=== PATIENT | male | born 1945 | race Caucasian/White ===

== ENCOUNTER 2020-05-26 21:02 | Outpatient (RCR) | payer MEDICARE, SELFPAY ==
[2020-05-26] MEDS: COVID-19 VACC, MRNA(PFIZER)/PF 30 MCG/0.3 ML SYRINGE IM (09:43)
[2020-06-16] MEDS: COVID-19 VACC, MRNA(PFIZER)/PF 30 MCG/0.3 ML SYRINGE IM (09:17)
== END 2020-08-23 23:59 ==
LOC: IMMUN 21:02
PROVIDERS: PCP Internal Medicine; Visit Provider Family Medicine
DX: Z23 Encounter for immunization (principal)
CPT/HCPCS: 0001A; 0002A; 91300

== ENCOUNTER 2021-07-05 10:26 | Emergency (ER) | payer MEDICARE, SELFPAY ==
[2021-07-05 10:28] VITALS: BP 158/96; PULSE 81; RESP 17; TEMP 36.2; O2SAT 98; BMI 21.1
--- NOTE | 2021-07-05 10:51 | EDS_ITS ---
HPI History of Present Illness HPI Narrative: Patient presents with dog bite to his right hand that occurred today. Patient states it was a neighborhood dog. Patient does not know the applications programmer. Patient states the dog was otherwise acting normally. Patient states he reached out to pet the dog and it bit him on his hand. Patient describes his pain as dull. Patient states it is worse with certain movements. Patient denies any paresthesias or weakness. Patient states his last tetanus was between 5 and 10 years ago. Patient denies any other injuries. Chief Complaint: Bite Informant: patient Occured/Mechanism Comment: Dog bite Onset/Context/Timing Onset: Today Context: Sudden Onset Timing: Continuous Quality of Pain: Dull Location: Right hand Worsened by: Movement Relieved by: Nothing Associated Symptoms Associated Symptoms: Negative for Parasthesia, Weakness and Loss of Funtion Narrative Tetanus Immunization: 5-10 years [facility] Medical History Depression Home Medications amoxicillin-pot clavulanate 1 tab PO Q12H #20 tablet 07/05/21 [Rx Last Taken Unknown] venlafaxine 37.5 mg PO DAILY 07/05/21 [History Last Taken Unknown] Allergy/AdvReac Type Severity Reaction Status Date / Time No Known Allergies Allergy Verified 07/05/21 10:27 Surgical History History of tonsillectomy Social History Smoking Status: Current every day smoker tobacco type: cigarettes ROS ROS ED Constitutional Constitutional ED: Denies chills or fever(s) Eyes Eyes: Denies blurry vision or change in vision ENT ENT ED: Reports rhinorrhea; Denies sore throat Cardiovascular Cardiovascular: Denies chest pain or palpitations Respiratory/Chest Respiratory/Chest: Denies cough or dyspnea Gastrointestinal Gastrointestinal: Denies nausea or vomiting Genitourinary Genitourinary ED: Denies dysuria or hematuria Musculoskeletal Musculoskeletal: Denies back pain or neck pain Integumentary Denies abscess or rash Neurologic Neurologic: Denies headache(s) or weakness Allergic/Immunologic Allergic/Immunologic ED: Denies mouth swelling or urticaria EXAM Physical Exam Const Vital Signs: 07/05/21 10:28 Temperature 97.2 F L Temperature Source Temporal Pulse Rate 81 Respiratory Rate 17 Blood Pressure 158/96 H Blood Pressure Mean 116 Pulse Ox 98 Positive well nourished and well developed General Appearance ED: well developed and NAD HEENT Reports moist mucous membranes Neck full ROM Extremity Extremity Narrative: There is a 3 cm full-thickness linear laceration over the dorsal aspect of the right hand. There is also a superficial skin tear extending proximally from this. There is no active bleeding. The extensor tendon is visualized but there is no tendon laceration noted. There is full range of motion of the right hand. Strength is 5/5 in flexion extension of the MP, PIP, and DIP joints of the right third fourth and fifth digits. There are no sensory deficits. Radial pulses are equal bilaterally. Neuro oriented x3, CN's II-XII intact bilaterally, moves all extremities, no focal motor deficits and no sensory deficits noted Sensorium / Orientation: alert Psych mental status grossly normal MDM MDM MDM Narrative Medical decision making narrative: The wound was cleaned and irrigated with copious amounts of normal saline. The wound was anesthetized with 1% plain lidocaine locally. The wound was closed with 4 simple interrupted #4-0 nylon sutures under sterile technique. Patient tolerated the procedure well. Bacitracin dressing was applied. The area with a skin tear was cleaned and dressed as well. Patient was given a dose of Augmentin here. Patient was given a prescription for Augmentin. Patient was instructed to keep the wound clean and dry. Patient was instructed to follow-up with his primary care physician in 7 days for wound recheck and suture removal. Patient was instructed to try to find the applications programmer of the dog just to let them know he was bitten and the dog should be observed for 10 days. Patient understands and is agreeable with the plan. All questions were answered. Procedures Lacerations Right hand: Length: 3 cm Depth: Sub Q Shape: Linear Prep: Sterile Conditions and Shure-Clens Laceration repair: Irrigated, Lidocaine, Local, Skin sutures and Wound explored Irrigated (ml): 100 Number of Sutures/Miles: 4 Suture Information: Ethilon and 4-0 Discharge Plan Triage Chief Complaint: Bite ED Provider: Reza Morales Dx/Rx/DC Orders Clinical Impression: Laceration of right hand, Dog bite Instructions: ED Dog Bite, ED Laceration, Hand: All Closures Prescriptions: New amoxicillin-pot clavulanate [amoxicillin-pot clavulanate] 875 MG tablet 1 tab PO Q12H Qty: 20 RF: 0 No Action venlafaxine 37.5 mg capsule,extended release 24hr 37.5 mg PO DAILY RF: 0 Primary Care Provider: Kaleigh Salazar Referrals: Kaleigh Salazar MD [Primary Care Provider] - 7 Days for suture removal Disposition Disposition: Home, Self Care
[2021-07-05] MEDS: Lidocaine 1% (20 ml mdv) 20 ML Vial INFILT (11:43)
[2021-07-05] MEDS: Amox/Clavulanate 875 MG Tablet PO (11:43)
== END 2021-07-05 11:50 | disposition home or self-care (01) ==
PROVIDERS: Emergency Provider Emergency Medicine; PCP Internal Medicine; Visit Provider Emergency Medicine
DX: S61.411A Laceration without foreign body of right hand, initial encounter (principal); F17.210 Nicotine dependence, cigarettes, uncomplicated; W54.0XXA Bitten by dog, initial encounter; F32.A Depression, unspecified; Z79.899 Other long term (current) drug therapy
CPT/HCPCS: 12002; 99283